=== PATIENT | female | born 1970 | race Caucasian/White ===

== ENCOUNTER 2016-06-29 21:26 | Emergency (ER) | payer OTHER ==
[~2016-06-29] VITALS: Ht 152.4 cm; Wt 57.2 kg
[~2016-06-29 21:26] MED LIST: ALBU0.0952 IH; [UNRECOGNIZED DRUG - CODE] PO
[2016-06-29 21:46] VITALS: BP 128/90
--- NOTE | 2016-06-30 00:23 | NUR ---
PATIENT TO ER BED 6
--- NOTE | 2016-06-30 00:24 | NUR ---
46 Y/O F W/C/O CHILLS, FREQUENCY, URGENCY AND ABD / BACK PAIN WITH URINATION. PT ALSO C/O COUGH AND SOB X 3 DAYS. PT IN MONITOR, O2 SAT 98% RA, NO S/S OF DISTRESS NOTED. DENIES ANY PAIN PRESENT A THE MOMENT. ER MD MADE AWARE.
[2016-06-30 00:55] LABS: APPEARANCE,URINE SL CLOUDY (CLEAR); BILIRUBIN,URINE NEGATIVE (NEGATIVE); BLOOD, URINE TRACE-I (NEGATIVE); COLOR,URINE YELLOW (YELLOW); LEUKOCYTE ESTERASE ,URINE TRACE (NEGATIVE); NITRITE, URINE NEGATIVE (NEGATIVE); PH,URINE 6.5 (5.0-9.0); PROTEIN,URINE NEGATIVE (NEGATIVE); UGLUCOSE NEGATIVE (NEGATIVE); UROBILINOGEN,URINE 0.2 EU/dL (0.2 - 1)
[2016-06-30] MEDS ORDERED: diphenhydrAMINE 50 MG/ML VIAL IM ONE (01:20)
[2016-06-30] MEDS ORDERED: PHENAZOPYRIDINE 100 MG TAB PO ONE (01:25)
[2016-06-30 01:27] LABS: BACTERIA,URINE 3+ /HPF (None Seen)
[2016-06-30 01:50] VITALS: BP 97/72
--- NOTE | 2016-06-30 01:50 | NUR ---
Patient discharged with v/s stable. Written and verbal after care instructions given and explained. Patient alert, oriented and verbalized understanding of instructions. Ambulatory with steady gait. All questions addressed prior to discharge. ID band removed. Patient advised to follow up with PMD THIS WK OR RETURN TO ER IF CONDITION WORSENS. Rx of CIPRO AND PHENAZOPYRIDINE given. Patient educated on indication of medication including possible reaction and side effects. Opportunity to ask questions provided and answered.
[2016-07-02 07:16] LABS: CHLAMYDIA TRACHOMATIS AMP DNA NEGATIVE (NEGATIVE)
== END 2016-06-30 01:50 | disposition home or self-care (01) ==
LOC: MED 21:26
DX: N39.0 Urinary tract infection, site not specified (principal)
CPT/HCPCS: 36415; 81001; 81025; 87086; 96372; 99284; J1200; 87186; 87491

== ENCOUNTER 2016-07-02 22:41 | Emergency (ER) | payer OTHER ==
[~2016-07-02] VITALS: Ht 152.4 cm; Wt 57.2 kg
[~2016-07-02 22:41] MED LIST changes: -ALBU0.0952 IH; +CIPRO250 MG PO; +DAYQUIL COLD/FL1 SGL PO; +PHENAZOPYRIDIN100 MG PO; +PROVENTIL0.09 MG/A1 IH; -[UNRECOGNIZED DRUG - CODE] PO
[2016-07-02 22:49] VITALS: BP 122/82
--- NOTE | 2016-07-03 00:24 | NUR ---
PT TAKEN TO BED 8
--- NOTE | 2016-07-03 00:30 | NUR ---
LOWER ABD PAIN RADIATING TO HER LOWER BACK, CHILLS. PAIN SCALE 4/10. ERMD MADE AWARE
--- NOTE | 2016-07-03 00:45 | NUR ---
DR. HUNT AT BEDSIDE EVALUATING PT
[2016-07-03 01:10] VITALS: BP 118/78
--- NOTE | 2016-07-03 01:10 | NUR ---
Patient discharged with v/s stable. Written and verbal after care instructions given and explained. Patient alert, oriented and verbalized understanding of instructions. Ambulatory with steady gait. All questions addressed prior to discharge. ID band removed. Patient advised to follow up with PMD. Rx of MACRIBID CAPSULE 1 CAP 2 TIMES A DAY, CIPRO 500MG 1 TAB ORALLY 2 TIMES A DAY given. Patient educated on indication of medication including possible reaction and side effects. Opportunity to ask questions provided and answered.
== END 2016-07-03 01:10 | disposition home or self-care (01) ==
LOC: MED 22:41
DX: N39.0 Urinary tract infection, site not specified (principal); F17.210 Nicotine dependence, cigarettes, uncomplicated; J44.9 Chronic obstructive pulmonary disease, unspecified

== ENCOUNTER 2016-08-26 02:00 | Emergency (ER) | payer OTHER ==
[~2016-08-26] VITALS: Ht 152.4 cm; Wt 57.2 kg
[~2016-08-26 02:00] MED LIST changes: +ALBU0.0952 IH; -CIPRO250 MG PO; -DAYQUIL COLD/FL1 SGL PO; -PHENAZOPYRIDIN100 MG PO; -PROVENTIL0.09 MG/A1 IH; +[UNRECOGNIZED DRUG - CODE] PO
[2016-08-26 02:08] VITALS: BP 148/90
--- NOTE | 2016-08-26 02:15 | NUR ---
Dr. Carbajal evaluating patient at bedside.
--- NOTE | 2016-08-26 02:15 | NUR ---
PT TAKEN TO BED 5
[2016-08-26] MEDS ORDERED: PHENAZOPYRIDINE 100 MG TAB PO ONE (02:20)
--- NOTE | 2016-08-26 02:20 | NUR ---
46 Y/O F W/C/O BURNING WITH URINATIONAND ADB DISCOMFORT X 1 DAY. PT STATES HAS RECURRING UTI'S. NO S/S OF DISTRESS NOTED. MED HX UTIS.
[2016-08-26 02:47] VITALS: BP 143/92
--- NOTE | 2016-08-26 02:47 | NUR ---
Patient discharged with v/s stable. Written and verbal after care instructions given and explained. Patient alert, oriented and verbalized understanding of instructions. Ambulatory with steady gait. All questions addressed prior to discharge. ID band removed. Patient advised to follow up with PMD THIS WK OR RETURN TO ER IF CONDITION WORSENS. Rx of CIPRO, PYRIDIUM AND MACRODANTIN given. Patient educated on indication of medication including possible reaction and side effects. Opportunity to ask questions provided and answered.
== END 2016-08-26 02:47 | disposition home or self-care (01) ==
LOC: MED 02:00
DX: N39.0 Urinary tract infection, site not specified (principal); R03.0 Elevated blood-pressure reading, without diagnosis of hypertension; J44.9 Chronic obstructive pulmonary disease, unspecified; Z71.6 Tobacco abuse counseling
CPT/HCPCS: 81002; 81025; 99283

== ENCOUNTER 2016-09-30 23:06 | Emergency (ER) | payer OTHER ==
[~2016-09-30] VITALS: Ht 154.9 cm; Wt 54.5 kg
[2016-09-30 23:28] VITALS: BP 115/79
--- NOTE | 2016-09-30 23:46 | NUR ---
AMBULATED TO ER BED 5
--- NOTE | 2016-09-30 23:58 | NUR ---
46 Y/O F W/C/O PELVIC PAIN, LOWER BACK PAIN, BROWNISH VAGINAL DISCHARGE, AND BODY ACHES X 3 DAYS. MED HX UTIS.
--- NOTE | 2016-10-01 00:06 | NUR ---
Patient being evaluated by physician at bedside.
[2016-10-01] MEDS ORDERED: KETOROLAC 30 MG/ML VIAL IVP ONE (00:15)
[2016-10-01] MEDS ORDERED: NACL 0.9% 1,000 ML IV ONE (00:15)
--- NOTE | 2016-10-01 00:42 | NUR ---
ULTRASOUND AT BEDSIDE
[2016-10-01 00:46] LABS: APPEARANCE,URINE CLEAR (CLEAR); BILIRUBIN,URINE NEGATIVE (NEGATIVE); BLOOD, URINE 3+ (NEGATIVE); COLOR,URINE YELLOW (YELLOW); LEUKOCYTE ESTERASE ,URINE 1+ (NEGATIVE); NITRITE, URINE NEGATIVE (NEGATIVE); PROTEIN,URINE NEGATIVE (NEGATIVE); UGLUCOSE NEGATIVE (NEGATIVE); UROBILINOGEN,URINE 0.2 EU/dL (0.2 - 1)
[2016-10-01 00:52] LABS: BACTERIA,URINE 3+ /HPF (None Seen); MUCUS,URINE 3+ /LPF (None Seen); RBC,URINE TOO NUMEROUS TO COUN /HPF (0-5); SQUAMOUS EPITHELIAL CELL,UR 0-3 (FEW) /LPF (0-3 (FEW)); WBC,URINE TOO MANY TO COUNT /HPF (0-5)
[2016-10-01] MEDS ORDERED: LEVOFLOXACIN 500 MG TAB PO ONE (01:00)
--- NOTE | 2016-10-01 02:50 | NUR ---
IV removed, catheter intact and site benign. Applied folded 4x4 gauze and tape to stop bleeding.
[2016-10-01 02:53] VITALS: BP 119/82
--- NOTE | 2016-10-01 02:54 | NUR ---
Patient discharged with v/s stable. Written and verbal after care instructions given and explained. Patient alert, oriented and verbalized understanding of instructions. Ambulatory with steady gait. All questions addressed prior to discharge. ID band removed. Patient advised to follow up with PMD. Rx of MACROBID 100MG AND TRAMADOL 50MG given. Patient educated on indication of medication including possible reaction and side effects. Opportunity to ask questions provided and answered.
== END 2016-10-01 02:53 | disposition home or self-care (01) ==
LOC: MED 23:06
DX: N39.0 Urinary tract infection, site not specified (principal); J44.9 Chronic obstructive pulmonary disease, unspecified
CPT/HCPCS: 76856; 81001; 81025; 87086; 96361; 96374; 99285; J1885; J7030; Q0092

== ENCOUNTER 2016-12-20 16:57 | Emergency (ER) | payer OTHER ==
[~2016-12-20] VITALS: Ht 152.4 cm; Wt 53.5 kg
[2016-12-20 17:10] VITALS: BP 125/71
[2016-12-20 17:21] VITALS: BP 117/71
--- NOTE | 2016-12-20 18:59 | NUR ---
Patient ambulated to bed 8. RN evaluating patient at bedside.
--- NOTE | 2016-12-20 19:18 | NUR ---
Patient being evaluated by physician at bedside.
[2016-12-20 19:38] LABS: APPEARANCE,URINE TURBID (CLEAR); BILIRUBIN,URINE NEGATIVE (NEGATIVE); BLOOD, URINE 1+ (NEGATIVE); COLOR,URINE YELLOW (YELLOW); LEUKOCYTE ESTERASE ,URINE TRACE (NEGATIVE); NITRITE, URINE NEGATIVE (NEGATIVE); UGLUCOSE NEGATIVE (NEGATIVE)
[2016-12-20 20:03] LABS: RBC,URINE 3-10 (FEW) /HPF (0-5); WBC,URINE 20-60 /HPF (0-5)
--- NOTE | 2016-12-20 20:05 | NUR ---
VSS, PT STABLE, RX AND DC INSTRUCTIONS GIVEN Patient discharged with v/s stable. Written and verbal after care instructions given and explained. Patient alert, oriented and verbalized understanding of instructions. Ambulatory with steady gait. All questions addressed prior to discharge. ID band removed. Patient advised to follow up with PMD. Rx of PHENAZOPYRIDINE HCL 100MG ONE TAB 3 TIMES A DAY PRN PAIN, NEOSPORIN TOP OINT 3 TIMES A DAY , CIPRO 250MG ONE TAB 2 TIMES A DAY X 5 DAYS given. Patient educated on indication of medication including possible reaction and side effects. Opportunity to ask questions provided and answered.
[2016-12-23 06:58] LABS: CHLAMYDIA TRACHOMATIS AMP DNA Negative (Negative)
== END 2016-12-20 20:05 | disposition home or self-care (01) ==
LOC: MED 16:57
DX: N39.0 Urinary tract infection, site not specified (principal); F19.10 Other psychoactive substance abuse, uncomplicated; J44.9 Chronic obstructive pulmonary disease, unspecified; Z71.6 Tobacco abuse counseling; Z79.899 Other long term (current) drug therapy
CPT/HCPCS: 36415; 81001; 81025; 87086; 87186; 87491; 99284

== ENCOUNTER 2017-06-05 21:06 | Emergency (ER) | payer OTHER ==
[~2017-06-05] VITALS: Ht 165.1 cm; Wt 57.2 kg
[2017-06-05 21:08] VITALS: BP 139/90
--- NOTE | 2017-06-05 21:14 | NUR ---
to lobby, a/w bed, amb, stable , ermd noted
--- NOTE | 2017-06-05 21:55 | NUR ---
PATIENT AMBULATED TO ER CHAIR A.
--- NOTE | 2017-06-05 21:57 | NUR ---
PATIENT IS A 47 Y/O FEMALE WHO PRESENTS TO THE ED C/O SPIDER BITE. PT STATES, "MY SPIDER BITE HAS GOTTEN BIGGER." PT REPORTS 10/10 RIGHT ELBOW PAIN THAT DOES NOT RADIATE. NOTED BUMP AND REDNESS TO RIGHT ELBOW. CMS INTACT. PT DENIES CP, SOB, REPORTS NAUSEA DENIES VOMITING/DIARRHEA. PT AAOX4, RR EVEN/UNLABORED. PT REPOSITIONED FOR COMFORT, PT SITTING IN CHAIR. ER MD DR. BENNETT NOTIFIED. WILL CONTINUE TO MONITOR.
[2017-06-05] MEDS ORDERED: KETOROLAC 60 MG/2 ML VIAL IM ONE (22:35)
[2017-06-05] MEDS ORDERED: tiZANidine 4 MG TAB PO ONE (22:35)
[2017-06-05] MEDS ORDERED: cefTRIAXone 1,000 MG in LIDOCAINE MPF 1% - **ER/OR** 2.1 ML IM ONE (22:35)
[2017-06-05 23:05] VITALS: BP 132/82
--- NOTE | 2017-06-05 23:05 | NUR ---
Patient discharged with v/s stable. Written and verbal after care instructions given and explained. Patient alert, oriented and verbalized understanding of instructions. Ambulatory with steady gait. All questions addressed prior to discharge. ID band removed. Patient advised to follow up with PMD. Rx of IBU 600MG, BACTRIM 800MG-160MG, KEFLEX 500MG, given. Patient educated on indication of medication including possible reaction and side effects. Opportunity to ask questions provided and answered.
== END 2017-06-05 23:05 | disposition home or self-care (01) ==
LOC: MED 21:06
DX: L03.113 Cellulitis of right upper limb (principal); F15.10 Other stimulant abuse, uncomplicated; J44.9 Chronic obstructive pulmonary disease, unspecified
CPT/HCPCS: 96372; 99284; J0696; J1885; J2001

== ENCOUNTER 2017-06-10 15:01 | Emergency (ER) | payer OTHER ==
[~2017-06-10] VITALS: Ht 152.4 cm; Wt 57.2 kg
--- NOTE | 2017-06-10 15:24 | NUR ---
PT AMBULATED TO BED 10
[2017-06-10 15:27] VITALS: BP 107/67
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
--- NOTE | 2017-06-10 15:50 | NUR ---
Patient being evaluated by physician at bedside.
[2017-06-10] MEDS ORDERED: ONDANSETRON 4 MG ODT PO ONE (16:05)
[2017-06-10 16:38] VITALS: BP 107/67
== END 2017-06-10 16:20 | disposition home or self-care (01) ==
LOC: MED 15:01
DX: Z48.01 Encounter for change or removal of surgical wound dressing (principal); R11.2 Nausea with vomiting, unspecified
CPT/HCPCS: 99283; S0119

== ENCOUNTER 2017-06-26 16:33 | Emergency (ER) | payer OTHER ==
[~2017-06-26] VITALS: Ht 152.4 cm; Wt 52.4 kg
[2017-06-26 16:36] VITALS: BP 112/74
--- NOTE | 2017-06-26 16:46 | NUR ---
PATIENT PRESENTS TO ED WITH C/O OF PAINFUL URINATION AND PAINFUL INTERCOURSE X 3DAYS. THAT RADIATES TO LOWER ABD . PT STATES " I HAVE HAD BURNING PAIN WHEN I URINATE AND HAVE SEX IT HURTS, I HAVE NOT HAD INCREASED DISCHARGE BUT DO NOTICE A FISHY ODOR COMING FROM MY VAGINA" . DENIES N/V/D; SKIN IS PINK/WARM/DRY; AAOX4 WITH EVEN AND STEADY GAIT; HR EVEN AND REGULAR; PT DENIES ANY FEVER, CP, SOB, OR COUGH AT THIS TIME; PATIENT STATES BURNING PAIN OF 8/10 AT THIS TIME; VSS; PATIENT POSITIONED FOR COMFORT; HOB ELEVATED; BEDRAILS UP X2; BED DOWN. ER MD MADE AWARE OF PT STATUS.
[2017-06-26] MEDS ORDERED: cefTRIAXone 1,000 MG in LIDOCAINE 1% ***ER ONLY *** 2.1 ML IM ONE (17:10)
[2017-06-26] MEDS ORDERED: KETOROLAC 60 MG/2 ML VIAL IM ONE (17:10)
[2017-06-26] MEDS ORDERED: LEVOFLOXACIN 500 MG TAB PO ONE (17:10)
--- NOTE | 2017-06-26 17:20 | NUR ---
DR. AHUJA IN ROOM EVALUATING PATIENT.
[2017-06-26] MEDS ORDERED: cefTRIAXone 1,000 MG VIAL ONE (17:21)
[2017-06-26] MEDS ORDERED: LIDOCAINE MPF 1% - **ER/OR** 5 ML ONE (17:40)
[2017-06-26 17:55] VITALS: BP 120/68
--- NOTE | 2017-06-26 17:55 | NUR ---
Patient discharged with v/s stable. Written and verbal after care instructions given and explained. Patient alert, oriented and verbalized understanding of instructions. Ambulatory with steady gait. All questions addressed prior to discharge. ID band removed. Patient advised to follow up with PMD. Rx of LEVAQUIN, PYRIDIUM given. Patient educated on indication of medication including possible reaction and side effects. Opportunity to ask questions provided and answered.
== END 2017-06-26 17:55 | disposition home or self-care (01) ==
LOC: MED 16:33
DX: N39.0 Urinary tract infection, site not specified (principal); J44.9 Chronic obstructive pulmonary disease, unspecified; Z79.899 Other long term (current) drug therapy
CPT/HCPCS: 81002; 81025; 96372; 99284; J0696; J1885; J2001

== ENCOUNTER 2017-08-25 19:35 | Emergency (ER) | payer OTHER ==
[~2017-08-25] VITALS: Ht 152.4 cm; Wt 58.5 kg
[2017-08-25 19:43] VITALS: BP 111/81
[2017-08-25 19:46] VITALS: BP 111/81
--- NOTE | 2017-08-25 19:46 | NUR ---
TO LOBBY. A/W BED, AMBULATORY, VSS, ERMD NOTED
--- NOTE | 2017-08-25 23:25 | NUR ---
PATIENT LEFT WITHOUT BEING SEEN BY DR. Carbajal. NO FURTHER CARE PROVIDED FOR PATIENT.
== END 2017-08-25 23:25 | disposition left against medical advice (07) ==
LOC: MED 19:35
DX: R30.9 Painful micturition, unspecified (principal); Z53.21 Procedure and treatment not carried out due to patient leaving prior to being seen by health care provider
CPT/HCPCS: 81025

== ENCOUNTER 2017-08-26 01:35 | Emergency (ER) | payer OTHER ==
[~2017-08-26] VITALS: Ht 152.4 cm; Wt 57.2 kg
[2017-08-26 01:59] VITALS: BP 119/76
--- NOTE | 2017-08-26 02:02 | NUR ---
TO BED # 5 AMBULATORY,
--- NOTE | 2017-08-26 02:05 | NUR ---
PATIENT PRESENTS TO ED WITH HEADACHE X5 DAYS. PT STATES N/V; SKIN IS PINK/WARM/DRY; AAOX4 WITH EVEN AND STEADY GAIT; LUNGS CLEAR BL; HR EVEN AND REGULAR; PT DENIES ANY FEVER, CP, SOB, OR COUGH AT THIS TIME; PATIENT STATES PAIN OF 10/10 AT THIS TIME; VSS; PATIENT POSITIONED FOR COMFORT; HOB ELEVATED; BEDRAILS UP X1; BED DOWN. ER MD MADE AWARE OF PT STATUS.
--- NOTE | 2017-08-26 02:26 | NUR ---
Dr. Carbajal evaluating patient at bedside.
[2017-08-26] MEDS ORDERED: MORPHINE SULFATE 2 MG/ML SYR IM ONE (02:30)
[2017-08-26] MEDS ORDERED: diphenhydrAMINE 50 MG/ML VIAL IM ONE (02:30)
[2017-08-26] MEDS ORDERED: PROCHLORPERAZINE 10 MG/2 ML VIAL IM ONE (02:30)
[2017-08-26] MEDS ORDERED: LEVOFLOXACIN 500 MG TAB PO ONE (03:05)
[2017-08-26 03:30] VITALS: BP 122/72
--- NOTE | 2017-08-26 03:30 | NUR ---
Patient discharged with v/s stable. Written and verbal after care instructions given and explained. Patient alert, oriented and verbalized understanding of instructions. Ambulatory with steady gait. All questions addressed prior to discharge. ID band removed. Patient advised to follow up with PMD. Rx of MACROBID AND TRAMADOL HCL given. Patient educated on indication of medication including possible reaction and side effects. Opportunity to ask questions provided and answered.
== END 2017-08-26 03:30 | disposition home or self-care (01) ==
LOC: MED 01:35
DX: N39.0 Urinary tract infection, site not specified (principal); R51 Headache; J44.9 Chronic obstructive pulmonary disease, unspecified; F17.210 Nicotine dependence, cigarettes, uncomplicated
CPT/HCPCS: 81002; 81025; 96372; 99284; J0780; J1200; J2270

== ENCOUNTER 2017-10-26 01:05 | Emergency (ER) | payer OTHER ==
[~2017-10-26] VITALS: Ht 152.4 cm; Wt 54.0 kg
[2017-10-26 01:14] VITALS: BP 123/74
[2017-10-26] MEDS ORDERED: PHENAZOPYRIDINE 100 MG TAB PO ONE (02:05)
[2017-10-26] MEDS ORDERED: cefTRIAXone 1,000 MG in LIDOCAINE MPF 1% - 5 mL VIAL 2.1 ML IM ONE (02:15)
[2017-10-26 02:38] VITALS: BP 104/67
== END 2017-10-26 02:38 | disposition home or self-care (01) ==
LOC: MED 01:05
DX: N39.0 Urinary tract infection, site not specified (principal); J44.9 Chronic obstructive pulmonary disease, unspecified; Z79.899 Other long term (current) drug therapy
CPT/HCPCS: 36415; 81002; 81025; 87491; 96372; 99283; J0696; J2001

== ENCOUNTER 2017-12-17 19:17 | Emergency (ER) | payer OTHER ==
[~2017-12-17] VITALS: Ht 152.4 cm; Wt 55.5 kg
[2017-12-17 19:22] VITALS: BP 133/84
--- NOTE | 2017-12-17 19:26 | NUR ---
Patient ambulated to bed 8. RN evaluating patient at bedside.
--- NOTE | 2017-12-17 19:26 | NUR ---
PT PRESENTS TO ED WITH RIGHT LOWER BACK PAIN 8/10 WITH GENERALIZED FATIGUE. NO CHANGE IN URINARY STATUS. A&OX4. AFEBRILE. VSS. POSITIONED IN BED FOR COMFORT. ER MD AWARE. CONTINUE TO MONITOR.
[2017-12-17] MEDS ORDERED: KETOROLAC 60 MG/2 ML VIAL IM ONE (20:50)
--- NOTE | 2017-12-17 20:52 | NUR ---
Patient taken to US via wheelchair by tech.
--- NOTE | 2017-12-17 20:53 | NUR ---
Escorted to [facility] by tech.
[2017-12-17 21:36] LABS: BASOPHILS % (AUTO) 0.4 % (0.0-2.0); EOSINOPHILS # (AUTO) 0.2 K/uL (0-0.4); EOSINOPHILS % (AUTO) 2.9 % (0.0-4.0); HEMATOCRIT 38.1 % (36-48); HEMOGLOBIN 12.6 g/dL (12.0-16.0); LYMPHOCYTES # (AUTO) 4.2 K/uL (2.5-16.5); LYMPHOCYTES % (AUTO) 51.6 % (20.5-51.1); MEAN CORPUSCULAR HEMOGLOBIN 30 pg (27-31); MEAN CORPUSCULAR HGB CONC 33 g/dL (33-37); MEAN CORPUSCULAR VOLUME 89.8 fL (80-94); MONOCYTES # (AUTO) 0.5 K/uL (0.8-1.0); MONOCYTES % (AUTO) 6.6 % (1.7-9.3); NEUTROPHILS # (AUTO) 3.2 K/uL (1.8-7.7); NEUTROPHILS % (AUTO) 38.5 % (42.2-75.2); PLATELET COUNT (AUTO) 248 K/uL (140-450); RED BLOOD CELL COUNT(AUTO) 4.25 MIL/uL (4.20-5.40); RED CELL DISTRIBUTION WIDTH 14.5 % (11.6-13.7); WHITE BLOOD COUNT (AUTO) 8.2 K/uL (4.8-10.8)
[2017-12-17 21:49] LABS: ANION GAP 10.8 (8-16); CREATININE 0.9 mg/dL (0.6-1.3); POTASSIUM 3.8 mmol/L (3.5-5.1)
[2017-12-17 21:55] LABS: APPEARANCE,URINE CLEAR (CLEAR); BILIRUBIN,URINE NEGATIVE (NEGATIVE); BLOOD, URINE TRACE-L (NEGATIVE); COLOR,URINE YELLOW (YELLOW); LEUKOCYTE ESTERASE ,URINE TRACE (NEGATIVE); NITRITE, URINE NEGATIVE (NEGATIVE); UGLUCOSE NEGATIVE (NEGATIVE)
[2017-12-17] MEDS ORDERED: CEPHALEXIN 500 MG CAP PO ONE (21:55)
[2017-12-17 21:56] LABS: ALBUMIN 3.2 g/dL (3.4-5.0); TOTAL BILIRUBIN 0.2 mg/dL (0.0-1.0)
--- NOTE | 2017-12-17 22:02 | NUR ---
Patient discharged with v/s stable. Written and verbal after care instructions given and explained. Patient alert, oriented and verbalized understanding of instructions. Ambulatory with steady gait. All questions addressed prior to discharge. ID band removed. Patient advised to follow up with PMD. Rx of IBU,MACRODID given. Patient educated on indication of medication including possible reaction and side effects. Opportunity to ask questions provided and answered.
[2017-12-17 22:03] VITALS: BP 109/67
[2017-12-17 22:04] LABS: RBC,URINE 0-5 (RARE) /HPF (0-5)
[2017-12-17 22:05] LABS: WBC,URINE 6-15 (FEW) /HPF (0-5)
== END 2017-12-17 22:02 | disposition home or self-care (01) ==
LOC: MED 19:17
DX: N39.0 Urinary tract infection, site not specified (principal); M53.3 Sacrococcygeal disorders, not elsewhere classified; J44.9 Chronic obstructive pulmonary disease, unspecified
CPT/HCPCS: 36415; 76856; 80053; 81001; 81025; 83690; 85025; 87086; 96372; 99285; J1885; Q0092

== ENCOUNTER 2018-08-28 17:43 | Emergency (ER) | payer OTHER ==
[~2018-08-28] VITALS: Ht 152.4 cm; Wt 59.2 kg
[2018-08-28 17:46] VITALS: BP 132/93
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
[2018-08-28] MEDS ORDERED: IBUPROFEN 800 MG TAB PO ONE (18:20)
[2018-08-28] MEDS ORDERED: SULFAMETH/TRIMETH DS 800/160MG 1 TAB PO ONE (18:20)
--- NOTE | 2018-08-28 18:43 | NUR ---
Patient discharged with v/s stable. Written and verbal after care instructions given and explained. Patient alert, oriented and verbalized understanding of instructions. Ambulatory with steady gait. All questions addressed prior to discharge. ID band removed. Patient advised to follow up with PMD. Rx of Motrin and Bactrim given. Patient educated on indication of medication including possible reaction and side effects. Opportunity to ask questions provided and answered.
[2018-08-28 18:44] VITALS: BP 122/89
== END 2018-08-28 18:43 | disposition home or self-care (01) ==
LOC: MED 17:43
DX: S00.86XA Insect bite (nonvenomous) of other part of head, initial encounter (principal); L03.211 Cellulitis of face; J44.9 Chronic obstructive pulmonary disease, unspecified; W57.XXXA Bitten or stung by nonvenomous insect and other nonvenomous arthropods, initial encounter; Y93.89 Activity, other specified; Y92.89 Other specified places as the place of occurrence of the external cause; Y99.8 Other external cause status
CPT/HCPCS: 99283

== ENCOUNTER 2018-08-31 22:40 | Emergency (ER) | payer OTHER ==
[~2018-08-31] VITALS: Ht 152.4 cm; Wt 59.0 kg
[2018-08-31 22:45] VITALS: BP 141/91
--- NOTE | 2018-08-31 22:47 | NUR ---
TO LOBBY A/W BED AMBULATORY
--- NOTE | 2018-08-31 23:20 | NUR ---
48 Y/O PT PRESENTS TO ED WITH C/O OF ABSCESS TO LEFT CHEEK X1 WEEK. REDNESS, EDEMA, AND PURULENT HEAD NOTED. PT STAETS MINIMAL DRAINAGE AT HOME. AFEBRILE WITH VSS. POSITIONED IN BED FOR COMFORT. 8/10 PAIN. ER MD AWARE. CONTINUE TO MONITOR.
--- NOTE | 2018-08-31 23:20 | NUR ---
PT AMBULATED TO BED 9
[2018-08-31] MEDS ORDERED: LIDOCAINE 1% 500 MG/50 ML VIAL INJ SCH (23:25)
[2018-08-31] MEDS ORDERED: NACL 0.9% 1,000 ML IV ONE (23:40)
[2018-08-31] MEDS ORDERED: VANCOMYCIN 1,000 MG in DEXTROSE 5% 250 ML IV ONE (23:40)
[2018-08-31] MEDS ORDERED: KETOROLAC 30 MG/ML VIAL IVP ONE (23:40)
[2018-09-01] MEDS ORDERED: VANCOMYCIN 1,000 MG VIAL ONE (00:05)
[2018-09-01 01:30] VITALS: BP 138/88
--- NOTE | 2018-09-01 01:30 | NUR ---
Patient discharged with v/s stable. Written and verbal after care instructions given and explained. Patient alert, oriented and verbalized understanding of instructions. Ambulatory with steady gait. All questions addressed prior to discharge. ID band removed. Patient advised to follow up with PMD. Rx of CLINDAMYCIN given. Patient educated on indication of medication including possible reaction and side effects. Opportunity to ask questions provided and answered.
== END 2018-09-01 01:30 | disposition home or self-care (01) ==
LOC: MED 22:40
DX: L02.01 Cutaneous abscess of face (principal); E11.9 Type 2 diabetes mellitus without complications
CPT/HCPCS: 36415; 87040; 96365; 96375; 99283; J1885; J3370; J7030

== ENCOUNTER 2019-01-11 15:11 | Emergency (ER) | payer OTHER ==
[~2019-01-11] VITALS: Ht 152.4 cm; Wt 57.2 kg
[2019-01-11 15:21] VITALS: BP 126/80
--- NOTE | 2019-01-11 15:24 | NUR ---
PT AMBULATED TO BED 08 Addendum: 01/11/19 at 1529 by NICKY PT AMBULATED TO BED 09
--- NOTE | 2019-01-11 15:30 | NUR ---
JERRELL NEWELL AT BEDSIDE
--- NOTE | 2019-01-11 15:42 | NUR ---
C/O UTI SYMPTOMS-DYSURIA, FREQUENCY, LOWER BACK TENDERNESS X 3 DAYS WITH FATIGUE. DENIES FEVER OR CHILLS. BURNING PAIN 7/10 WITH URINATION. VSS. AA0X4. BED IS DOWN, LOCKED, BED RAIL X 1, ERMD TO SEE PT HX FREQUENT UTI.
[2019-01-11] MEDS ORDERED: cefTRIAXone 1,000 MG in LIDOCAINE MPF 1% 2.1 ML IM ONE (15:55)
[2019-01-11 16:18] LABS: APPEARANCE,URINE CLOUDY (CLEAR); BILIRUBIN,URINE NEGATIVE (NEGATIVE); BLOOD, URINE 2+ (NEGATIVE); COLOR,URINE YELLOW (YELLOW); LEUKOCYTE ESTERASE ,URINE NEGATIVE (NEGATIVE); NITRITE, URINE NEGATIVE (NEGATIVE); PH,URINE 6.5 (5.0-9.0); UGLUCOSE NEGATIVE (NEGATIVE)
[2019-01-11 16:26] VITALS: BP 132/77
--- NOTE | 2019-01-11 16:26 | NUR ---
Patient discharged with v/s stable. Written and verbal after care instructions given and explained. Patient alert, oriented and verbalized understanding of instructions. Ambulatory with steady gait. All questions addressed prior to discharge. ID band removed. Patient advised to follow up with PMD. Rx of PYRIDIUM AND KEFLEX given. Patient educated on indication of medication including possible reaction and side effects. Opportunity to ask questions provided and answered. PT INSTRUCTED THAT HER YELLOW WILL TURN RED/ORANGE, NORMAL FINDING WITH PYRIDIUM
== END 2019-01-11 16:26 | disposition home or self-care (01) ==
LOC: MED 15:11
DX: N39.0 Urinary tract infection, site not specified (principal); E11.9 Type 2 diabetes mellitus without complications; F15.10 Other stimulant abuse, uncomplicated
CPT/HCPCS: 81001; 81025; 87086; 96372; 99283; J0696; J2001

== ENCOUNTER 2019-04-09 21:04 | Emergency (ER) | payer OTHER ==
[~2019-04-09] VITALS: Ht 152.4 cm; Wt 57.6 kg
[2019-04-09 21:15] VITALS: BP 132/79
--- NOTE | 2019-04-09 21:17 | NUR ---
TO LOBBY A/W BED AMBULATORY
[2019-04-09 22:55] VITALS: BP 132/79
--- NOTE | 2019-04-09 22:55 | NUR ---
PATIENT LEFT WITHOUT BEING SEEN BY DR. ORELLANA. NO FURTHER CARE PROVIDED FOR PATIENT.
== END 2019-04-09 22:55 | disposition left against medical advice (07) ==
LOC: MED 21:04
DX: Z53.21 Procedure and treatment not carried out due to patient leaving prior to being seen by health care provider (principal)

== ENCOUNTER 2019-05-01 19:54 | Emergency (ER) | payer OTHER ==
[~2019-05-01] VITALS: Ht 152.4 cm; Wt 57.2 kg
[2019-05-01 19:55] VITALS: BP 140/90
--- NOTE | 2019-05-01 19:58 | NUR ---
TO LOBBY A/W BED AMBULATORY
--- NOTE | 2019-05-01 20:23 | NUR ---
48 y/o female bib self c/o toothache x5 days. Severe 10/10 pain. Дмитрий Jaeger aware. Continue to monitor.
--- NOTE | 2019-05-01 20:23 | NUR ---
PT AMBULATED TO [facility]
[2019-05-01] MEDS ORDERED: KETOROLAC 60 MG/2 ML VIAL IM ONE (21:05)
[2019-05-01 21:35] VITALS: BP 135/86
--- NOTE | 2019-05-01 21:35 | NUR ---
Patient discharged with v/s stable. She staets tollerable 5/10 pain and relief. Written and verbal after care instructions given and explained. Patient alert, oriented and verbalized understanding of instructions. Ambulatory with steady gait. All questions addressed prior to discharge. ID band removed. Patient advised to follow up with PMD. Rx of Acetaminophen and Amoxicillin given. Patient educated on indication of medication including possible reaction and side effects. Opportunity to ask questions provided and answered.
== END 2019-05-01 21:35 | disposition home or self-care (01) ==
LOC: MED 19:54
DX: K02.9 Dental caries, unspecified (principal); F15.10 Other stimulant abuse, uncomplicated; E11.9 Type 2 diabetes mellitus without complications; F17.210 Nicotine dependence, cigarettes, uncomplicated
CPT/HCPCS: 96372; 99283; J1885

== ENCOUNTER 2019-12-17 14:35 | Emergency (ER) | payer OTHER ==
[~2019-12-17] VITALS: Ht 152.4 cm; Wt 65.8 kg
[2019-12-17 14:39] VITALS: BP 133/92
--- NOTE | 2019-12-17 14:52 | NUR ---
49 Y/O FEMALE Pt c/o open wound to right forearm and left ring finger. States she had small "cut" on arm and fingers and began getting larger with redness medhx: substance abuse, 14 abortions
[2019-12-17] MEDS ORDERED: BACITRACIN OINT 500 UNITS/GM PKT TP ONE (14:59)
[2019-12-17 15:09] VITALS: BP 133/92
--- NOTE | 2019-12-17 15:09 | NUR ---
Patient discharged with v/s stable. Written and verbal after care instructions given and explained. Patient alert, oriented and verbalized understanding of instructions. Ambulatory with steady gait. All questions addressed prior to discharge. ID band removed. Patient advised to follow up with PMD. Rx of BACTRIM, KEFLEX given. Patient educated on indication of medication including possible reaction and side effects. Opportunity to ask questions provided and answered.
== END 2019-12-17 15:09 | disposition home or self-care (01) ==
LOC: MED 14:35
DX: L03.113 Cellulitis of right upper limb (principal); L03.012 Cellulitis of left finger; F17.210 Nicotine dependence, cigarettes, uncomplicated; F12.90 Cannabis use, unspecified, uncomplicated; E11.9 Type 2 diabetes mellitus without complications
CPT/HCPCS: 99282; 99283

== ENCOUNTER 2019-12-20 19:43 | Emergency (ER) | payer OTHER ==
[~2019-12-20] VITALS: Ht 152.4 cm; Wt 63.0 kg
[2019-12-20 19:58] VITALS: BP 130/94
--- NOTE | 2019-12-20 20:05 | NUR ---
JERRELL NEWELL AT BEDSIDE IN TRIAGE
--- NOTE | 2019-12-20 20:05 | NUR ---
PT SEEN AND EVALUATED BY OSIRIS ALLAN. NO NURSING CARE PROVIDED
--- NOTE | 2019-12-20 20:16 | NUR ---
Patient discharged with v/s stable. Written and verbal after care instructions given and explained. Patient alert, oriented and verbalized understanding of instructions. Ambulatory with steady gait. All questions addressed prior to discharge. ID band removed. Patient advised to follow up with PMD. Rx of KEFLEX AND BACTRIM given. Patient educated on indication of medication including possible reaction and side effects. Opportunity to ask questions provided and answered.
== END 2019-12-20 20:16 | disposition home or self-care (01) ==
LOC: MED 19:43
DX: L03.90 Cellulitis, unspecified (principal); E11.9 Type 2 diabetes mellitus without complications; F15.10 Other stimulant abuse, uncomplicated; Z76.0 Encounter for issue of repeat prescription
CPT/HCPCS: 99281; 99283

== ENCOUNTER 2020-01-07 21:22 | Emergency (ER) | payer OTHER ==
[~2020-01-07] VITALS: Ht 162.6 cm; Wt 73.9 kg
[2020-01-07 21:35] VITALS: BP 129/87
--- NOTE | 2020-01-07 21:41 | NUR ---
PT TAKEN TO BED 2
--- NOTE | 2020-01-07 22:13 | NUR ---
Dr. Calzada examining patient.
--- NOTE | 2020-01-07 22:15 | NUR ---
pt refuses covid swab.
--- NOTE | 2020-01-07 22:22 | NUR ---
pt discharged but refused to sign paperwork.
== END 2020-01-07 22:22 | disposition home or self-care (01) ==
LOC: MED 21:22
DX: R21 Rash and other nonspecific skin eruption (principal); Z20.828 Contact with and (suspected) exposure to other viral communicable diseases; R11.0 Nausea; R42 Dizziness and giddiness; R43.8 Other disturbances of smell and taste
CPT/HCPCS: 81002; 81025; 99282

== ENCOUNTER 2020-02-28 16:47 | Emergency (ER) | payer OTHER ==
[~2020-02-28] VITALS: Ht 152.4 cm; Wt 59.9 kg
[2020-02-28 17:01] VITALS: BP 141/89
--- NOTE | 2020-02-28 17:04 | NUR ---
C/O RIGHT LOWER TOOTH PAIN X 3 DAYS. PMH: C SECTION
[2020-02-28 18:55] VITALS: BP 141/89
--- NOTE | 2020-02-28 18:56 | NUR ---
Patient discharged with v/s stable. Written and verbal after care instructions given and explained. Patient alert, oriented and verbalized understanding of instructions. Ambulatory with steady gait. All questions addressed prior to discharge. ID band removed. Patient advised to follow up with PMD. Rx of NORCO, AMOXICILLIN given. Patient educated on indication of medication including possible reaction and side effects. Opportunity to ask questions provided and answered.
== END 2020-02-28 18:56 | disposition home or self-care (01) ==
LOC: MED 16:47
DX: K08.89 Other specified disorders of teeth and supporting structures (principal); Z98.890 Other specified postprocedural states
CPT/HCPCS: 99283

== ENCOUNTER 2020-03-29 10:41 | Emergency (ER) | payer OTHER ==
[~2020-03-29] VITALS: Ht 152.4 cm; Wt 57.6 kg
[2020-03-29 10:42] VITALS: BP 110/80
--- NOTE | 2020-03-29 11:00 | NUR ---
C/O R KNEE PAIN 8/10 S/P TWISTED X 2 DAYS. PMH: C SECTONS, MULTIPLE RIBS FRACTURE
--- NOTE | 2020-03-29 12:04 | NUR ---
PT'S RIGHT KNEE WRAPPED WITH 3" QUIN WRAP
[2020-03-29 12:19] VITALS: BP 110/80
--- NOTE | 2020-03-29 12:21 | NUR ---
Patient discharged with v/s stable. Written and verbal after care instructions given and explained. Patient verbalized understanding. Ambulatory with steady gait. All questions addressed prior to discharge. Advised to follow up with PMD.
== END 2020-03-29 12:21 | disposition home or self-care (01) ==
LOC: MED 10:41
DX: S86.811A Strain of other muscle(s) and tendon(s) at lower leg level, right leg, initial encounter (principal); M71.21 Synovial cyst of popliteal space [Baker], right knee; Z20.828 Contact with and (suspected) exposure to other viral communicable diseases; F15.10 Other stimulant abuse, uncomplicated; F17.200 Nicotine dependence, unspecified, uncomplicated; X58.XXXA Exposure to other specified factors, initial encounter; Y93.89 Activity, other specified; Y92.89 Other specified places as the place of occurrence of the external cause; Y99.8 Other external cause status
CPT/HCPCS: 71045; 73562; 93971; 99284

== ENCOUNTER 2020-05-18 12:02 | Emergency (ER) | payer OTHER ==
[~2020-05-18] VITALS: Ht 152.4 cm; Wt 67.6 kg
[2020-05-18 12:05] VITALS: BP 122/75
--- NOTE | 2020-05-18 12:12 | NUR ---
Dr. Samuel is evaluating the patient at bedside.
--- NOTE | 2020-05-18 12:15 | NUR ---
PATIENT ELOPED FROM FACILITY. DISCHARGE INSTRUCTIONS NOT GIVEN TO PATIENT. DR. ALEMAN NOTIFIED.
[2020-05-18] MEDS ORDERED: IBUP-2218 PO (20:15)
== END 2020-05-18 12:15 | disposition left against medical advice (07) ==
LOC: MED 12:02
DX: K08.89 Other specified disorders of teeth and supporting structures (principal); Z53.21 Procedure and treatment not carried out due to patient leaving prior to being seen by health care provider

== ENCOUNTER 2020-05-18 19:57 | Emergency (ER) | payer OTHER ==
[~2020-05-18] VITALS: Ht 152.4 cm; Wt 67.6 kg
[2020-05-18 20:01] VITALS: BP 150/90
--- NOTE | 2020-05-18 20:01 | NUR ---
TO BED AMBULATORY
--- NOTE | 2020-05-18 20:04 | NUR ---
ERMD AT BEDSIDE FOR MEDICAL EVALUATION.
--- NOTE | 2020-05-18 20:04 | NUR ---
49 YR OLD FEMALE PRESENTED TO THE ER WITH CC OF TOOTACHE AND JAW PAIN. PT IS AOX4. PT STATES SUDDEN ONSET 10/10 NON-RADIATING "TIGHT FEELING" LOWER LEFT TOOTHACHE AND JAW PAIN FOR THE PAST 4 DAYS. PT HAS VISIBLE TOOTH DECAY IN LOWER LEFT JAW. PT HAS NO VISIBLE ORAL TRAUMA AND NO SIGNS OF SWELLING. PT DENIES OTHER MEDICAL COMPLAINTS. BED LOCKED IN LOWEST POSITION. HISTORY- NONE ALLERGIES- NONE
[2020-05-18] MEDS ORDERED: IBUP-2218 PO (20:15)
[2020-05-18] MEDS ORDERED: KETOROLAC 30 MG/ML VIAL IM ONE (20:15)
== END 2020-05-18 20:28 | disposition home or self-care (01) ==
LOC: MED 19:57
DX: K02.9 Dental caries, unspecified (principal)
CPT/HCPCS: 96372; 99283; J1885

== ENCOUNTER 2020-12-20 19:15 | Emergency (ER) | payer OTHER ==
[~2020-12-20] VITALS: Ht 152.4 cm; Wt 63.5 kg
[~2020-12-20 19:15] MED LIST changes: -ALBU0.0952 IH; +IBUP-2218 PO; -[UNRECOGNIZED DRUG - CODE] PO
[2020-12-20 19:23] VITALS: BP 131/67
--- NOTE | 2020-12-20 19:23 | NUR ---
TO BED AMBULATORY
--- NOTE | 2020-12-20 19:35 | NUR ---
RECEIVED IN BED 11 WITH C/O RED SPOTS SCATTERED. STATES IS PREPARING TO ENTER DRUG REHAB AND HAS BEEN USING METH . PT STATES SHE HAS BEEN SCRATCHING AND SHE THINKS IT IS MRSA.
--- NOTE | 2020-12-20 19:43 | NUR ---
Madison birch in ED - 12/20/[address] GAMBOA AT BEDSIDE FOR EXAM
[2020-12-20] MEDS ORDERED: diphenhydrAMINE 50 MG/ML VIAL IM ONE (19:50)
[2020-12-20] MEDS ORDERED: CEPH-588 PO (19:50)
== END 2020-12-20 20:00 | disposition home or self-care (01) ==
LOC: MED 19:15
DX: S80.862A Insect bite (nonvenomous), left lower leg, initial encounter (principal); S80.861A Insect bite (nonvenomous), right lower leg, initial encounter; F15.10 Other stimulant abuse, uncomplicated
CPT/HCPCS: 96372; 99283; J1200

== ENCOUNTER 2021-04-17 21:15 | Emergency (ER) | payer OTHER ==
[~2021-04-17] VITALS: Ht 152.4 cm; Wt 68.0 kg
[~2021-04-17 21:15] MED LIST changes: +CEPH-588 PO
[2021-04-17 21:21] VITALS: BP 134/68
--- NOTE | 2021-04-17 22:55 | NUR ---
SEEN AND EXAMINED BY MARIA A
[2021-04-17] MEDS ORDERED: KETOROLAC 60 MG/2 ML VIAL IM ONE (23:00)
[2021-04-17] MEDS ORDERED: IBUP-2218 PO (23:04)
[2021-04-17 23:30] VITALS: BP 130/70
== END 2021-04-17 23:30 | disposition home or self-care (01) ==
LOC: MED 21:15
DX: R10.9 Unspecified abdominal pain (principal)
CPT/HCPCS: 96372; 99283; J1885

== ENCOUNTER 2021-04-21 17:43 | Emergency (ER) | payer OTHER ==
[~2021-04-21] VITALS: Ht 160 cm; Wt 69.9 kg
[2021-04-21 17:59] VITALS: BP 135/102
--- NOTE | 2021-04-21 18:05 | NUR ---
PT TO WAIT IN LOBBY.
[2021-04-21] MEDS ORDERED: ACET-8386 PO (20:14)
[2021-04-21 21:34] VITALS: BP 135/102
--- NOTE | 2021-04-21 21:39 | NUR ---
PT LEFT W/O DC PAPERWORK.
== END 2021-04-21 21:39 | disposition home or self-care (01) ==
LOC: MED 17:43
DX: S29.012A Strain of muscle and tendon of back wall of thorax, initial encounter (principal); Z79.899 Other long term (current) drug therapy; X58.XXXA Exposure to other specified factors, initial encounter; Y93.89 Activity, other specified; Y92.89 Other specified places as the place of occurrence of the external cause; Y99.8 Other external cause status
CPT/HCPCS: 71045; 99283